=== PATIENT | male | born 1980 | race Caucasian/White ===

== ENCOUNTER 2025-03-08 22:26 | Emergency (ER) | payer OTHER ==
[~2025-03-08] VITALS: Ht 165.1 cm; Wt 77.1 kg
[2025-03-09] MEDS: IV NS 0.9% 1,000 ML IV ONE (03:03)
[2025-03-09] MEDS ORDERED: KETOROLAC TROMETHAMINE INJ 30 MG/ML VIAL ONE (03:04)
[2025-03-09] MEDS ORDERED: IOHEXOL-300 100 ML VIAL IV ONE (03:06)
[2025-03-09 03:13] LABS: BASOPHILS % (AUTO) 0.3 % (0.0-2.0); EOSINOPHILS # (AUTO) 0.2 K/uL (0.0-0.7); EOSINOPHILS % (AUTO) 1.5 % (0.0-6.0); HEMATOCRIT 44 % (39-51); HEMOGLOBIN 14.6 g/dL (13.5-17.5); LYMPHOCYTES # (AUTO) 1.6 K/uL (0.8-4.8); LYMPHOCYTES % (AUTO) 14.1 % (20.0-44.0); MEAN CORPUSCULAR HEMOGLOBIN 26 PG (26.0-33.0); MEAN CORPUSCULAR HGB CONC 33 g/dl (31.0-36.0); MEAN CORPUSCULAR VOLUME 77 fL (80-96); MONOCYTES # (AUTO) 0.7 K/uL (0.1-1.30); MONOCYTES % (AUTO) 6.4 % (2.0-12.0); NEUTROPHILS # (AUTO) 8.9 K/uL (1.8-8.9); NEUTROPHILS % (AUTO) 77.7 % (43.0-81.0); PLATELET COUNT (AUTO) 196 K/uL (150-450); RED BLOOD CELL COUNT(AUTO) 5.71 MIL/uL (4.5-6.0); RED CELL DISTRIBUTION WIDTH 14.8 % (11.5-15.0); WHITE BLOOD COUNT (AUTO) 11.4 K/uL (4.3-11.0)
[2025-03-09] MEDS: KETOROLAC TROMETHAMINE INJ 30 MG/ML VIAL IV ONE (03:15)
[2025-03-09] MEDS ORDERED: VANCOMYCIN 500 MG VIAL ONE (03:19)
[2025-03-09] MEDS ORDERED: VANCOMYCIN 1 GM /D5W 250 ML PB IV ONE (03:19)
[2025-03-09 03:29] LABS: ALBUMIN 3.9 g/dL (3.4-5.0); BILIRUBIN,TOTAL 0.8 mg/dL (0.2-1.0); CALCIUM, SERUM 9.5 mg/dL (8.5-10.1); CREATININE 0.9 mg/dL (0.6-1.3); POTASSIUM 3.6 mmol/L (3.5-5.1); TOTAL PROTEIN, SERUM 7.7 g/dL (6.4-8.2)
[2025-03-09] MEDS: VANCOMYCIN HCL 1.25 GM in IV D5W 260 ML IV ONE (03:49)
[2025-03-09] MEDS ORDERED: CLIN150C16 PO (08:26)
[2025-03-09] MEDS ORDERED: NAPR-1009 PO (08:26)
[2025-03-09 08:48] VITALS: BP 122/69; TEMP 99.5; O2SAT 100
== END 2025-03-09 08:48 | disposition home or self-care (01) ==
LOC: ER 22:33
DX: K04.7 Periapical abscess without sinus (principal); L03.211 Cellulitis of face; Z86.0100 Personal history of colon polyps, unspecified; Z88.5 Allergy status to narcotic agent
CPT/HCPCS: 99285; 96374; 70491; 96361; 96375; 85025; 87040; 36415; 80053; J1885; J3370 ×2; J7030; J7040; Q9967; J7060